=== PATIENT | male | born 1955 | race Caucasian/White ===

== ENCOUNTER 2019-12-13 23:20 | Emergency (ER) | payer OTHER ==
[~2019-12-13] VITALS: Ht 182.9 cm; Wt 98.0 kg
--- NOTE | 2019-12-13 23:29 | PHYS DOC ---
Adult General Chief Complaint Chief Complaint: ALCOHOL INTOXICATION HPI HPI 64-year-old male presents to the emergency department via EMS after a fall. Patient states he's been at the [employer] in, he had been drinking a few beverages subsequently lost his balance hit his head. He denies any loss of consciousness. Unknown if patient hit his car, bench or curb. Patient has approximate 3 cm laceration appreciated above his left eye, he has swelling and ecchymosis appreciated to the eye as well. Patient denies any blood thinning medications. Nothing makes his symptoms worse, nothing makes his symptoms better on exam. Review of Systems Review of Systems Constitutional: Denies fever or chills [] Eyes: eye pain, laceration to left eyebrown [] Respiratory: Denies cough or shortness of breath [] Cardiovascular: No additional information not addressed in HPI [] GI: Denies abdominal pain, nausea, vomiting, bloody stools or diarrhea [] Musculoskeletal: Denies back pain or joint pain [] Integument: Denies rash or skin lesions [] Neurologic: Denies headache, focal weakness or sensory changes [] All other systems were reviewed and found to be within normal limits, except as documented in this note. Current Medications Current Medications Current Medications Medications (Trade) Dose Ordered Sig/Susanne Start Time Stop Time Status Last Admin Dose Admin Lidocaine/ Epinephrine (LIDOCAINE 2%-EPI 1:100,000 multi-dose) 20 ml 1X ONCE 12/14/19 00:00 12/14/19 00:01 DC Tetanus/ Diphtheria Toxoids (Tenivac Syringe) 0.5 ml ONCE ONCE 12/14/19 00:00 12/14/19 00:01 DC Allergies Allergies Allergies Coded Allergies Type Severity Reaction Last Updated Verified No Known Drug Allergies 12/13/19 No Physical Exam Physical Exam Constitutional: Well developed, well nourished, no acute distress, non-toxic appearance. [] HENT: 2.5cm laceration appreciated to left eyebrow, erythema/ecchymosis with swelling to left eye, bilateral external ears normal, oropharynx moist, no oral exudates, nose normal. [] Eyes: PERRLA, EOMI - no minimal nystagmus appreciated, conjunctiva normal, no discharge. [] Neck: Normal range of motion, no tenderness, supple, no stridor. [] Cardiovascular:Heart rate regular rhythm, no murmur [] Lungs & Thorax: Bilateral breath sounds clear to auscultation [] Abdomen: Bowel sounds normal, soft, no tenderness, no masses, no pulsatile masses. [] Skin: Warm, dry, no erythema, no rash. [] Back: No tenderness, no CVA tenderness. [] Extremities: No tenderness, no edema. [] Neurologic: Alert and oriented X 3, no focal deficits noted. [] Psychologic: Affect normal, judgement normal, mood normal. [] Current Patient Data Vital Signs Vital Signs Date Time Temp Pulse Resp B/P (MAP) Pulse Ox O2 Delivery O2 Flow Rate FiO2 12/13/19 23:20 98.1 80 18 104/70 (81) 96 Room Air 98.1 EKG EKG [] Radiology/Procedures Radiology/Procedures [facility] [address] [place] [address] IMAGING REPORT Signed PATIENT: MATEUSZ NICHOLSON ACCOUNT: [id number] : 1955 LOCATION: ER AGE: 64 SEX: M EXAM STATUS: REG ER ORD. PHYSICIAN: SOPHIA LOCKE MD REASON: Fall, etoh, laceration to left upper eyelid PROCEDURE: CT HEAD AND CERVICAL SPINE WO EXAM: CT HEAD WITHOUT IV CONTRAST CLINICAL HISTORY: Fall, headache, facial injury COMPARISON: None. TECHNIQUE: Routine CT of the head without contrast. Soft tissues and bone windows were reviewed. PQRS compliance statement - One or more of the following individualized dose reduction techniques were utilized for this study: 1. Automated exposure control 2. Adjustment of the mA and/or kV according to patient size 3. Use of iterative reconstruction technique FINDINGS: There is no evidence of hemorrhage, mass or extra-axial fluid collection. Faust-white differentiation is maintained with no evidence of edema. There is no mass effect or shift of the intracranial structures. The ventricles, basilar cisterns and cortical sulci are normal in size and configuration for the patients stated age. The cerebellum and brainstem are unremarkable. The calvarium demonstrates no evidence of fracture or focal lesion. Left orbital fracture better assessed on dedicated CT facial bones. Left maxillary sinus opacification likely traumatic hemorrhage Otherwise, normal aeration of the visualized paranasal sinuses and mastoid air cells. The visualized portions of the orbits are normal. Atherosclerotic calcifications of the intracranial internal carotid and vertebral arteries is seen. IMPRESSION: 1. No evidence for acute intracranial process. EXAM: CT CERVICAL SPINE WITHOUT IV CONTRAST CLINICAL HISTORY: Fall, headache, neck pain, EtOH COMPARISON: None available. TECHNIQUE: Helical CT of the cervical spine was performed. Axial, coronal and sagittal reformatted images were also performed. PQRS compliance statement - One or more of the following individualized dose reduction techniques were utilized for this study: 1. Automated exposure control 2. Adjustment of the mA and/or kV according to patient size 3. Use of iterative reconstruction technique FINDINGS: Vertebral body heights are preserved. No acute fracture. Moderate C5-6 and mild to moderate C6-7 disc height loss. No spondylolisthesis. Endplate osteophytes most prominent at C4-5, C5-6 and C6-7. Mild facet degenerative changes are seen. IMPRESSION: No acute fracture or subluxation. EXAM: CT facial bones without contrast CLINICAL HISTORY: COMPARISON: None available. TECHNIQUE: Helical CT of the face/paranasal sinuses was acquired and axial, coronal and sagittal reformatted images were generated. ---PQRS compliance statement - One or more of the following individualized dose reduction techniques were utilized for this study: 1. Automated exposure control 2. Adjustment of the mA and/or kV according to patient size 3. Use of iterative reconstruction technique--- FINDINGS: Soft tissue swelling overlying the left orbit and left frontal region. Left orbital blowout type fracture is seen with disruption of the left lamina papyracea as well as fracture of the left orbital floor. The orbital floor fracture is mildly depressed inferiorly. Associated high density material within the left maxillary sinus likely hemorrhagic material. Mild right maxillary sinus mucosal thickening likely sinusitis. The mastoids are unremarkable. Visualized upper aerodigestive tract is normal. Mandible and bilateral temporomandibular joints are normal. Atherosclerotic calcifications of the intracranial internal carotid and vertebral arteries is seen. IMPRESSION: 1. Left orbital blowout fracture with disruption of the left lamina papyracea and mildly depressed/angulated inferior orbital floor fracture. 2. Hemorrhagic material is seen within left maxillary sinus. Electronically signed by: Rahul Gamez MD (12/14/2019 12:33 AM) [facility] DICTATED and SIGNED BY: RAHUL GAMEZ MD DATE: 12/14/19 0033 [] Course & Med Decision Making Course & Med Decision Making Pertinent Labs and Imaging studies reviewed. (See chart for details) []64-year-old male presents to the emergency department via EMS after a fall. Patient states he's been at the [employer] in, he had been drinking a few beverages subsequently lost his balance hit his head. He denies any loss of consciousness. Unknown if patient hit his car, bench or curb. Patient has approximate 3 cm laceration appreciated above his left eye, he has swelling and ecchymosis appreciated to the eye as well. Patient denies any blood thinning medications. Nothing makes his symptoms worse, nothing makes his symptoms better on exam. Tetanus shot ordered however patient declined CT reviewed with left orbital fracture rupture of medial wall Discussed findings with [facility] Transfer Center - Dr. ALEJO is accepting Trauma Surgeon for Trauma Consult Patient will be transferred to [facility] ER Laceration Repair by me: Anesthesia: 2% lidocaine w/ epi locally Location: Left Eyebrow Tendon/Joint/Nerves: No injury Foreign body: None detected after copious irrigation and exploration Technique: 6 Simple Interrupted Sutures, 5.0 prolene Complexity: No subcutaneous sutures/mucosal repair/edge excision Post Closure Length: 3 cm Patient's bleeding was easily controlled in the department and there is no indication of anemia. No evidence of compartment syndrome, neurologic injury, vascular injury, open joint, tendon laceration, or foreign body. Patient is appropriate for outpatient follow up. Scar minimization instructions given. Dragon Disclaimer Dragon Disclaimer This electronic medical record was generated, in whole or in part, using a voice recognition dictation system. Departure Departure Impression: Primary Impression: Orbital floor fracture Additional Impression: Alcohol intoxication Disposition: 05 TRANSFER OTHER Condition: STABLE Patient Instructions: Facial Laceration, [id number], Laceration Care, Adult, [id number], Orbital Floor Fracture, Blowout Additional Instructions: Recommend follow up with PCP 3 - 5 days Return to the ER with worsening symptoms, intractable pain, fever, altered mental status Tylenol/Motrin as needed for pain CT findings with evidence of orbital blowout fracture Discussed findings with patient - plan to transfer to [facility] for Trauma Consult Sutures to be removed in 5 - 7 days Critical Care Time Critical care time was 40 minutes exclusive of procedures. Problem Qualifiers Primary Impression: Orbital floor fracture Encounter type: initial encounter Fracture type: closed Laterality: left Qualified Codes: S02.32XA - Fracture of orbital floor, left side, initial encounter for closed fracture Additional Impression: Alcohol intoxication Complication of substance-induced condition: uncomplicated Qualified Codes: F10.920 - Alcohol use, unspecified with intoxication, uncomplicated SOPHIA LOCKE MD Dec 13, 2019 23:29
[2019-12-14] MEDS ORDERED: TETANUS AND DIPHTHERIA TOX/PF 0.5 ML DISP.SYRIN. VAX IM ONE
[2019-12-14] MEDS ORDERED: LIDOCAINE 2%/EPI 1:100,000 20 ML VIAL. IJ ONE
--- NOTE | 2019-12-14 00:36 | RAD ---
EXAM: CT HEAD WITHOUT IV CONTRAST CLINICAL HISTORY: Fall, headache, facial injury COMPARISON: None. TECHNIQUE: Routine CT of the head without contrast. Soft tissues and bone windows were reviewed. PQRS compliance statement - One or more of the following individualized dose reduction techniques were utilized for this study: 1. Automated exposure control 2. Adjustment of the mA and/or kV according to patient size 3. Use of iterative reconstruction technique FINDINGS: There is no evidence of hemorrhage, mass or extra-axial fluid collection. Faust-white differentiation is maintained with no evidence of edema. There is no mass effect or shift of the intracranial structures. The ventricles, basilar cisterns and cortical sulci are normal in size and configuration for the patients stated age. The cerebellum and brainstem are unremarkable. The calvarium demonstrates no evidence of fracture or focal lesion. Left orbital fracture better assessed on dedicated CT facial bones. Left maxillary sinus opacification likely traumatic hemorrhage Otherwise, normal aeration of the visualized paranasal sinuses and mastoid air cells. The visualized portions of the orbits are normal. Atherosclerotic calcifications of the intracranial internal carotid and vertebral arteries is seen. IMPRESSION: 1. No evidence for acute intracranial process. EXAM: CT CERVICAL SPINE WITHOUT IV CONTRAST CLINICAL HISTORY: Fall, headache, neck pain, EtOH COMPARISON: None available. TECHNIQUE: Helical CT of the cervical spine was performed. Axial, coronal and sagittal reformatted images were also performed. PQRS compliance statement - One or more of the following individualized dose reduction techniques were utilized for this study: 1. Automated exposure control 2. Adjustment of the mA and/or kV according to patient size 3. Use of iterative reconstruction technique FINDINGS: Vertebral body heights are preserved. No acute fracture. Moderate C5-6 and mild to moderate C6-7 disc height loss. No spondylolisthesis. Endplate osteophytes most prominent at C4-5, C5-6 and C6-7. Mild facet degenerative changes are seen. IMPRESSION: No acute fracture or subluxation. EXAM: CT facial bones without contrast CLINICAL HISTORY: COMPARISON: None available. TECHNIQUE: Helical CT of the face/paranasal sinuses was acquired and axial, coronal and sagittal reformatted images were generated. ---PQRS compliance statement - One or more of the following individualized dose reduction techniques were utilized for this study: 1. Automated exposure control 2. Adjustment of the mA and/or kV according to patient size 3. Use of iterative reconstruction technique--- FINDINGS: Soft tissue swelling overlying the left orbit and left frontal region. Left orbital blowout type fracture is seen with disruption of the left lamina papyracea as well as fracture of the left orbital floor. The orbital floor fracture is mildly depressed inferiorly. Associated high density material within the left maxillary sinus likely hemorrhagic material. Mild right maxillary sinus mucosal thickening likely sinusitis. The mastoids are unremarkable. Visualized upper aerodigestive tract is normal. Mandible and bilateral temporomandibular joints are normal. Atherosclerotic calcifications of the intracranial internal carotid and vertebral arteries is seen. IMPRESSION: 1. Left orbital blowout fracture with disruption of the left lamina papyracea and mildly depressed/angulated inferior orbital floor fracture. 2. Hemorrhagic material is seen within left maxillary sinus. Electronically signed by: Rahul Randle MD (12/14/2019 12:33 AM) [facility]
[2019-12-14 02:05] VITALS: BP 119/78
== END 2019-12-14 02:05 | disposition short-term general hospital (02) ==
LOC: ER 23:20
DX: S02.32XA Fracture of orbital floor, left side, initial encounter for closed fracture (principal); S01.112A Laceration without foreign body of left eyelid and periocular area, initial encounter; F10.920 Alcohol use, unspecified with intoxication, uncomplicated; W18.39XA Other fall on same level, initial encounter; Y93.89 Activity, other specified; Y92.89 Other specified places as the place of occurrence of the external cause; Y99.8 Other external cause status
CPT/HCPCS: 12013; 70450; 70486; 72125; 99285; J3490